=== PATIENT | female | born 1950 | race Caucasian/White ===

== ENCOUNTER → 2021-07-13 16:45 | Outpatient (CLI) | payer MEDICARE, SELFPAY | PROVIDERS: Visit Provider Physician Assistant | DX: R10.9 Unspecified abdominal pain (principal); R30.0 Dysuria | CPT/HCPCS: 87077; 87086; 87186 ==

== ENCOUNTER → 2022-09-06 09:02 | Outpatient (CLI) | payer MEDICARE, SELFPAY | PROVIDERS: Visit Provider Physician Assistant Medical | DX: R30.0 Dysuria (principal) | CPT/HCPCS: 87086 ==

== ENCOUNTER → 2022-09-13 07:37 | Outpatient (CLI) | payer MEDICARE, SELFPAY | PROVIDERS: Visit Provider Physician Assistant Medical | DX: N89.8 Other specified noninflammatory disorders of vagina (principal); R30.0 Dysuria | CPT/HCPCS: 87086; 87210 ==

== ENCOUNTER → 2022-12-16 17:08 | Outpatient (CLI) | payer MEDICARE, SELFPAY ==
[2022-12-19 15:43] LABS: Fecal Immunochemical Test Negative (Negative)
== END ==
PROVIDERS: PCP Family Medicine; Referring Provider Family Medicine; Visit Provider Family Medicine
DX: Z11.59 Encounter for screening for other viral diseases (principal); Z12.31 Encounter for screening mammogram for malignant neoplasm of breast; Z12.11 Encounter for screening for malignant neoplasm of colon
CPT/HCPCS: 82274

== ENCOUNTER → 2023-02-22 08:55 | Outpatient (CLI) | payer MEDICARE, SELFPAY ==
[2023-02-22 10:52] LABS: Hematocrit 39.5 % (36-46); Hemoglobin 13.5 g/dL (12.0-16.0); Mean Corpuscular HGB Conc 34.2 % (30-36); Mean Corpuscular Hemoglobin 30.8 PG (26-34); Platelet Count 168 X10^3/uL (150-400); Red Blood Cell Count 4.39 X10^6/uL (4.0-5.2); White Blood Cell Count 2.4 X10^3/uL (4.5-11.0)
[2023-02-22 11:59] LABS: Alanine Aminotransferase 29 IU/L (<35); Albumin 3.8 g/dL (3.5-5.0); Albumin Globulin Ratio 1.5 (1.0-2.8); Alkaline Phosphatase 65 U/L (38-126); Aspartate Aminotransferase 27 IU/L (14-36); BUN Creatinine Ratio 28.2 (6-22); Bilirubin Total 0.4 mg/dL (0.2-1.3); Blood Urea Nitrogen 20 mg/dL (7-17); Carbon Dioxide 30 mmol/L (22-32); Chloride 104 mmol/L (98-107); Cholesterol 255 mg/dL (140-199); Estimated Glomerular Filt Rate > 60 mL/min (>60); Globulin 2.5 g/dL (1.7-4.1); Glucose 91 mg/dL (80-110); HDL Cholesterol 66 mg/dL (40-60); HEMOLYSIS < 15 (0-50); LDL Cholesterol Calculated 160 mg/dL (<100); Potassium 4.6 mmol/L (3.4-5.1); Sodium 138 mmol/L (137-145); Total Protein 6.3 g/dL (6.3-8.2); Triglycerides 144 mg/dL (35-150)
== END ==
PROVIDERS: PCP Family Medicine; Referring Provider Family Medicine; Visit Provider Family Medicine
DX: E78.00 Pure hypercholesterolemia, unspecified (principal); F10.20 Alcohol dependence, uncomplicated; F19.10 Other psychoactive substance abuse, uncomplicated
CPT/HCPCS: 36415; 80053; 80061; 85027

== ENCOUNTER → 2024-03-09 10:02 | Outpatient (CLI) | payer MEDICARE, SELFPAY ==
[2024-03-09 10:58] LABS: Add Manual Diff / Slide Review NO; Basophils Absolute Auto 0 /uL (0-100); Basophils Percent Auto 0.9 % (0-2); Eosinophils Absolute Auto 0 /uL (0-450); Eosinophils Percent Auto 2.2 % (2-4); Hematocrit 41.3 % (36-46); Hemoglobin 14.2 g/dL (12.0-16.0); Lymphocytes Absolute Auto 900 /uL (1100-4500); Lymphocytes Percent Auto 42.2 % (25-40); Mean Corpuscular HGB Conc 34.4 % (30-36); Mean Corpuscular Volume 90.1 fL (80-100); Monocytes Absolute Auto 200 /uL (0-900); Monocytes Percent Auto 11.5 % (3-14); Neutrophils Absolute Auto 900 /uL (1500-7000); Neutrophils Percent Auto 43.2 % (50-75); Platelet Count 188 X10^3/uL (150-400); Red Blood Cell Count 4.59 X10^6/uL (4.0-5.2); White Blood Cell Count 2.1 X10^3/uL (4.5-11.0)
[2024-03-09 11:08] LABS: Hemoglobin A1C% w Est Avg Glu 5.6 % (4.0-6.0)
[2024-03-09 11:10] LABS: Alanine Aminotransferase 21 IU/L (<35); Albumin 4.2 g/dL (3.5-5.0); Albumin Globulin Ratio 1.8 (1.0-2.8); Alkaline Phosphatase 63 U/L (38-126); Aspartate Aminotransferase 30 IU/L (14-36); BUN Creatinine Ratio 12.1 (6-22); Blood Urea Nitrogen 11 mg/dL (7-17); Calcium 9.4 mg/dL (8.4-10.2); Carbon Dioxide 29 mmol/L (22-32); Chloride 104 mmol/L (98-107); Estimated Glomerular Filt Rate > 60 mL/min (>60); Globulin 2.4 g/dL (1.7-4.1); Glucose 98 mg/dL (80-110); Sodium 137 mmol/L (137-145); Total Protein 6.6 g/dL (6.3-8.2)
[2024-03-09 11:14] LABS: HEMOLYSIS 80 (0-50); Potassium 5.4 mmol/L (3.4-5.1)
[2024-03-09 11:26] LABS: Vitamin D 25 Hydroxy (D3) 35.9 ng/mL (30.0-100.0)
[2024-03-09 11:45] LABS: Ferritin 158 ng/mL (11-264)
[2024-03-09 12:00] LABS: Vitamin B12 543 pg/mL (239-931)
== END ==
PROVIDERS: PCP Family Medicine; Referring Provider Family Medicine; Visit Provider Family Medicine
DX: Z12.11 Encounter for screening for malignant neoplasm of colon (principal); E78.5 Hyperlipidemia, unspecified; R73.9 Hyperglycemia, unspecified; E55.9 Vitamin D deficiency, unspecified; D72.819 Decreased white blood cell count, unspecified; I34.0 Nonrheumatic mitral (valve) insufficiency; R53.83 Other fatigue
CPT/HCPCS: 36415; 80053; 82274; 82306; 82607; 82728; 83036; 85025

== ENCOUNTER 2024-10-28 03:26 | Emergency (ER) | payer MEDICARE, SELFPAY ==
[2024-10-28] VITALS (7 sets, daily range): BP systolic 148–194; BP diastolic 65–96; PULSE 62–89; RESP 16–18; TEMP 36.4–36.8; O2SAT 95–100; BMI 26.4
--- NOTE | 2024-10-28 03:41 | EKG_ITS ---
[place] [id number] [place] [id number] Test Date: 2024-10-28 Pat Name: Tiffani Ribeiro Department: [facility] Room: Gender: Female Reading Intervention Teacher: BRIEN : 1950 Requested By: Order Number: [id number] Reading MD: Ramu Francisco MD Measurements Intervals [place] Rate: 73 P: 41 [place]: 142 QRS: 63 QRSD: 72 T: 63 QT: 382 QTc: 420 Interpretive Statements Normal sinus rhythm with sinus arrhythmia Septal infarct , age undetermined NO PRIOR TRACING Electronically Signed On 10-28-2024 7:35:38 PST by Ramu Francisco MD
--- NOTE | 2024-10-28 03:43 | ED_ITS ---
HPI - Back Pain/Injury General Chief Complaint: Back Pain/Injury Stated Complaint: back pain, hurts to breath and light headed Time Seen by Provider: 10/28/24 03:32 Source: patient Mode of arrival: Ambulatory Limitations: no limitations History of Present Illness HPI Narrative: Patient was a 73-year-old female who is here for evaluation of upper back discomfort. States the symptoms started approximately 18 hours ago and have been persistent since then although there have been times when it has been worse than others. It was not worse with palpation or movement. She also states that it is causing her some discomfort with taking a deep breath. States she was tingling down her arms and is feeling somewhat lightheaded. No chest pain. No fevers. No vomiting. No abdominal pain. No change in bowel habits. She was not any symptoms like this in the past. Has not tried anything for the symptoms prior to arrival. She was not remember any specific action that would have caused muscular pain in her upper back. Related Data Home Medications Medication Instructions Recorded Confirmed No Known Home Medications 03/14/24 09/10/24 Allergies Allergy/AdvReac Type Severity Reaction Status Date / Time codeine AdvReac Intermediate Nausea Verified 09/10/24 16:31 Review of Systems Review of Systems ROS Unobtainable: All systems reviewed & are unremarkable except as noted in HPI and below Patient History Medical History Alcoholic (~2021) Substance abuse (~2016) Mumps (~1958) Measles (~1958) Chicken pox (~1958) Herpes (~1979) Gonorrhea (~1971) Chlamydia (~1971) Frequent UTI (~2021) Hemorrhoid Surgical History (Updated 10/31/22 @ 20:02 by Bailee Moss) Anesthesia History of cataract removal with insertion of prosthetic lens (~12/21/21) Family History (Updated 10/31/22 @ 20:03 by Bailee Moss) Father Fall Broken neck Mother Hypertension Sister No problems noted. Social History Smoking Status: Former smoker Tobacco: How many years used: 5 alcohol intake: former (Quit 2020) substance use type: former substance user (former in 20s ) and marijuana (former) Smoking Status: Former smoker Exam Initial Vital Signs Initial Vital Signs: Vital Signs Temperature 97.6 F 10/28/24 03:35 Pulse Rate 89 10/28/24 03:35 Respiratory Rate 17 10/28/24 03:35 Blood Pressure 194/96 H 10/28/24 03:35 Pulse Oximetry 98 10/28/24 03:35 Oxygen Delivery Method Room Air 10/28/24 03:35 Const General: cooperative, comfortable and No ill appearing HENMT Head: normal to inspection and normocephalic Chest Chest: No crepitus and No tenderness Resp Effort & Inspection: normal respiratory effort Auscultation: clear to auscultation bilaterally Cardio Rate: regular rate Rhythm: regular rhythm GI Inspection: normal to inspection Back/Spine/Pelvis Cervical Spine: No cervical muscular tenderness, No cervical spasm and No cervical spinal tenderness Thoracic/Lumbar Spine: No paraspinal tenderness and No lumbar spinal tenderness Skin General: no rashes or lesions noted Neuro General: patient alert, patient awake and patient oriented x3 Extrem General: normal to inspection and capillary refill normal Course Orders Ordered: ED Orders 10/28/24 03:33 EKG-12 Lead Stat 10/28/24 03:44 CT angio chest abdomen pelvis Stat 10/28/24 03:50 Complete Blood Count AUTO DIFF Stat Comprehensive Metabolic Panel Stat Lipase Stat Troponin & CK Cardiac Panel Stat Discontinued Medications Cyclobenzaprine HCl (Cyclobenzaprine 10 Mg Prepack) 1 bottle MISC DIRECTED ONE Stop: 10/28/24 05:54 Vital Signs Vital signs: Vital Signs - 8 hr 10/28/24 03:35 10/28/24 04:00 10/28/24 04:15 Temperature 97.6 F Pulse Rate 89 69 64 Respiratory Rate 17 18 18 Blood Pressure 194/96 H 168/78 H 149/66 H Pulse Oximetry 98 100 98 Oxygen Delivery Method Room Air Room Air 10/28/24 04:45 10/28/24 05:00 10/28/24 05:30 Temperature Pulse Rate 63 62 66 Respiratory Rate 18 18 16 Blood Pressure 159/73 H 149/69 H 148/65 H Pulse Oximetry 98 95 95 Oxygen Delivery Method Room Air Room Air MDM - Back Pain/Injury Lab Data Attestation: I reviewed the patient's lab results. 10/28/24 03:50 10/28/24 03:50 Labs: Lab Results 10/28/24 Range/Units 03:50 WBC 4.1 L (4.5-11.0) X10^3/uL RBC 4.19 (4.0-5.2) X10^6/uL Hgb 13.1 (12.0-16.0) g/dL Hct 38.0 (36-46) % MCV 90.7 (80-100) fL MCH 31.3 (26-34) PG MCHC 34.5 (30-36) % RDW 13.7 (11.6-14.8) % Plt Count 196 (150-400) X10^3/uL Neut % (Auto) 45.7 L (50-75) % Lymph % (Auto) 39.2 (25-40) % Johnson % (Auto) 11.5 (3-14) % Eos % (Auto) 2.7 (2-4) % Baso % (Auto) 0.9 (0-2) % Neut # (Auto) 1900 (5801-2392) /uL Lymph # (Auto) 1600 (9922-8952) /uL Johnson # (Auto) 500 (0-900) /uL Eos # (Auto) 100 (0-450) /uL Baso # (Auto) 0 (0-100) /uL Sodium 137 (137-145) mmol/L Potassium 3.7 (3.4-5.1) mmol/L Chloride 106 (98-107) mmol/L Carbon Dioxide 27 (22-32) mmol/L BUN 19 H (7-17) mg/dL Creatinine 0.80 (0.52-1.04) mg/dL Estimated GFR > 60 (>60) mL/min BUN/Creatinine Ratio 23.8 H (6-22) Glucose 132 H (80-110) mg/dL Calcium 9.3 (8.4-10.2) mg/dL Total Bilirubin 0.2 (0.2-1.3) mg/dL AST 47 H (14-36) IU/L ALT 69 H (<35) IU/L Alkaline Phosphatase 60 (38-126) U/L Total Creatine Kinase 143 H (30-135) U/L Troponin I < 0.012 (0.01-0.034) ng/mL Total Protein 6.8 (6.3-8.2) g/dL Albumin 4.2 (3.5-5.0) g/dL Globulin 2.6 (1.7-4.1) g/dL Albumin/Globulin Ratio 1.6 (1.0-2.8) Lipase 228 (23-300) U/L Imaging Data CTA chest/abd/pelvis: Radiologist's Impression: No pulmonary embolism, aortic dissection or aneurysm Large volume of stool within the colon compatible with constipation No evidence of colitis diverticulitis bowel obstruction or obstructive uropathy. ECG Data Attestation: I personally reviewed and interpreted this ECG as follows: Interpretation: Sinus rhythm Ventricular rate is 73 Normal axis Normal QRS Normal QTC No ST T wave changes MDM Narrative Medical decision making narrative: Patient reports that during her time here in the emergency department her symptoms have vastly improved but not completely resolved. She did take an aspirin prior to arrival. No skin changes over the area concerning for zoster. No fevers. CT scan shows no aortic pathology. I have low suspicion that this is cardiac pathology. Suspect muscular. I did discuss this with her. Discussed return precautions and follow-up instructions. She expressed understanding and agreement with the plan. Discharge Plan Departure Patient Disposition: Home Clinical Impression: Upper back pain Instructions: DI for Muscle Strain Activity Restrictions/Additional Instructions: Recommend that you continue to take all of your medications as directed. Contact your primary care doctor for follow-up. Return emergency department for new or worsening symptoms. Prescriptions: No Action No Known Home Medications Referrals: Pauline Day DO [Primary Care Provider] - Stand Alone Forms: Patient Portal/API/Survey
--- NOTE | 2024-10-28 03:44 | DI.CT.S_ITS ---
PROCEDURE: CT ANGIO CHEST ABDOMEN PELVIS INDICATIONS: eval for thoracic aortic dissection TECHNIQUE: Precontrast 5 mm thick sections acquired from the lung apices to the iliac crests. After the administration of intravenous contrast, 2.5 mm thick sections again acquired from the lung apices to the iliac crests. Maximum intensity projection (MIP) oblique sagittal and coronal reformats were then acquired. For radiation dose reduction, the following was used: automated exposure control. COMPARISON: None. FINDINGS: Image quality: Diagnostic. AORTA: No aortic aneurysm. No acute aortic syndrome. CHEST: Lower Neck: No enlarged lymph nodes. Thyroid: There is a 0.6 cm right inferior pole thyroid hypodense nodule. Axillae: No enlarged lymph nodes. Chest Wall: Unremarkable. Lungs and Pleura: No pneumothorax or pleural effusions. No consolidation or suspicious nodules. small right-sided [place] fat containing hernia. Heart: Heart size is normal. No pericardial effusion. Thoracic Vessels: Pulmonary arteries demonstrate normal size. Mediastinum and [place]: No enlarged lymph nodes. Esophagus: No wall thickening. No hiatal hernia. ABDOMEN: Liver: No solid mass. Gallbladder: No radiopaque gallstones or wall thickening. Biliary ducts: No biliary dilation. Pancreas: No ductal dilation. Spleen: Size is within normal limits. Adrenal Glands: No adrenal nodules. Kidneys and Ureters: No hydronephrosis. No solid mass. No complex renal cystic lesion which requires follow up. Stomach and Bowel: Normal colonic caliber, without significant wall thickening. Normal appearing stomach and small bowel. Peritoneum: No abnormal intraperitoneal fluid. No free air. Ventral Wall: No hernia. Abdominal Nodes: No retroperitoneal or mesenteric adenopathy by size criteria. Vessels: Inferior vena cava is normal in size. PELVIS: Pelvic Organs: Unremarkable. Bladder: Unremarkable. Pelvic Nodes: No enlarged lymph nodes. Miscellaneous: No inguinal hernias are seen. Bones: Mild multilevel degeneration in the thoracic and lumbar spine. No suspicious lytic or blastic lesions. IMPRESSION: No evidence of aortic or other vascular dissection. No acute abdominal pelvic or musculoskeletal abnormalities. Dictated by: Isreal Londono M.D. on 10/28/2024 at 8:16 Approved by: Isreal Londono M.D. on 10/28/2024 at 8:34
[2024-10-28 04:05] LABS: Add Manual Diff / Slide Review NO; Basophils Absolute Auto 0 /uL (0-100); Basophils Percent Auto 0.9 % (0-2); Eosinophils Absolute Auto 100 /uL (0-450); Eosinophils Percent Auto 2.7 % (2-4); Hemoglobin 13.1 g/dL (12.0-16.0); Lymphocytes Absolute Auto 1600 /uL (1100-4500); Lymphocytes Percent Auto 39.2 % (25-40); Mean Corpuscular HGB Conc 34.5 % (30-36); Mean Corpuscular Hemoglobin 31.3 PG (26-34); Mean Corpuscular Volume 90.7 fL (80-100); Monocytes Absolute Auto 500 /uL (0-900); Monocytes Percent Auto 11.5 % (3-14); Neutrophils Absolute Auto 1900 /uL (1500-7000); Neutrophils Percent Auto 45.7 % (50-75); Platelet Count 196 X10^3/uL (150-400); Red Blood Cell Count 4.19 X10^6/uL (4.0-5.2); Red Cell Distribution Width 13.7 % (11.6-14.8); White Blood Cell Count 4.1 X10^3/uL (4.5-11.0)
[2024-10-28 04:15] LABS: Alanine Aminotransferase 69 IU/L (<35); Albumin 4.2 g/dL (3.5-5.0); Albumin Globulin Ratio 1.6 (1.0-2.8); Alkaline Phosphatase 60 U/L (38-126); Aspartate Aminotransferase 47 IU/L (14-36); BUN Creatinine Ratio 23.8 (6-22); Bilirubin Total 0.2 mg/dL (0.2-1.3); Blood Urea Nitrogen 19 mg/dL (7-17); Calcium 9.3 mg/dL (8.4-10.2); Carbon Dioxide 27 mmol/L (22-32); Chloride 106 mmol/L (98-107); Creatine Kinase 143 U/L (30-135); Estimated Glomerular Filt Rate > 60 mL/min (>60); Globulin 2.6 g/dL (1.7-4.1); Glucose 132 mg/dL (80-110); HEMOLYSIS 27 (0-50); Lipase 228 U/L (23-300); Potassium 3.7 mmol/L (3.4-5.1); Sodium 137 mmol/L (137-145); Total Protein 6.8 g/dL (6.3-8.2)
[2024-10-28 04:26] LABS: Troponin I < 0.012 ng/mL (0.01-0.034)
[2024-10-28] MEDS: CYCLOBENZAPRINE 10 MG PREPACK 1 BOTTLE MISC (06:01)
== END 2024-10-28 06:09 | disposition home or self-care (01) ==
PROVIDERS: Emergency Provider Emergency Medicine; PCP Family Medicine
DX: M54.6 Pain in thoracic spine (principal); R20.2 Paresthesia of skin; R42 Dizziness and giddiness; I49.8 Other specified cardiac arrhythmias
CPT/HCPCS: 36415; 71275; 74174; 80053; 82550; 83690; 84484; 85025; 93005; 99284; Q9967